=== PATIENT | female | born 1985 | race Caucasian/White ===

== ENCOUNTER 2018-10-26 11:18 | Emergency (ER) | payer OTHER ==
[2018-10-26] MEDS ORDERED: predniSONE 20 MG TAB PO ONE (11:43)
[2018-10-26] MEDS ORDERED: diphenhydrAMINE 25 MG CAP PO ONE (11:43)
[2018-10-26] MEDS ORDERED: FAMOTIDINE 20 MG TAB PO ONE (11:49)
--- NOTE | 2018-10-26 11:57 | EDPHY ---
H & P Time Seen by Provider: 10/26/18 11:30 HPI/ROS: This patient complains of urticaria with itching that started the night before presentation with history of sinusitis diagnosed after 6 weeks of nasal congestion and sinus pain 9 days ago by primary care physician, started on Augmentin and has taken 875 twice daily for 9 days. She came to the emergency department because he had a feeling of slight throat tightness prior to arrival associated with her hives that concerns her for potential impending breathing problem. She reports that her sinusitis is improved with now minimal pressure in the maxillary sinus region and no fevers. She is accompanied by her who drove her in by private vehicle. She has not taken any antihistamines or other additional medications since the onset of urticaria. She reports the urticaria is diffuse from her head to her toes. ROS: Constitutional: No fevers or chills recently HEENT: No sore throat or ear pain currently. Again sinus pressure is improved Pulmonary: No wheezing. No pleuritic pain. Cardiovascular: No heart palpitations or lightheadedness. GI: No nausea or vomiting Neuro: No complaints 7 point review of symptoms is performed and otherwise negative with exception of pertinent positives and negatives listed in HPI and ROS Past Medical/Surgical History: Sinusitis Smoking Status: Never smoked Physical Exam: General Appearance: Alert, no distress. Eyes: Pupils equal and round no pallor or injection. ENT, Mouth: Mucous membranes moist. Mallampati 1 airway with no drooling or stridor. No dysphonia. No angioedema Respiratory: There are no retractions, lungs are clear to auscultation. No wheezing. No rales. Cardiovascular: Regular rate and rhythm. No murmur gallop or rub Gastrointestinal: Abdomen is soft and nontender, no masses, bowel sounds normal. Neurological: GCS 15 Skin: Warm and dry, patient has diffuse erythematous papules that toño easily with pressure consistent with urticaria from her head to her toes. Musculoskeletal: Neck is supple nontender. Extremities are symmetrical, full range of motion. Psychiatric: Mood and affect are normal DIFFERENTIAL DIAGNOSIS: After history and physical exam differential diagnosis was considered for allergic drug rash, sinusitis resolving, nonspecific dermatitis, other urticaria from unrelated allergy, doubt anaphylaxis given lack of findings Constitutional: Initial Vital Signs Temperature (C) 36.2 C 10/26/18 11:25 Heart Rate 91 12/26/18 11:25 Respiratory Rate 18 10/26/18 11:25 Blood Pressure 126/82 H 10/26/18 11:25 O2 Sat (%) 96 10/26/18 11:25 O2 Delivery Mode Room Air Allergies/Adverse Reactions: many food and environmental allerg Allergy (Uncoded 10/26/18 11:25) Home Medications: Medication Instructions Recorded Multivitamins [Tab-A-Glendy] 1 tab PO HS 02/04/14 Albuterol 10/26/18 Augmentin 875 MG TAB (*) 10/26/18 Claritin 10/26/18 hydrOXYzine HCL [Hydroxyzine HCl] 50 - 100 mg PO QID PRN #80 tablet 10/26/18 predniSONE 40 mg PO DAILY #10 tab 10/26/18 MDM/Departure - MDM Medications Given: Discontinued Medications Diphenhydramine HCl (Benadryl) 50 mg PO EDNOW ONE Stop: 10/26/18 11:44 Last Admin: 10/26/18 11:58 Dose: 50 mg Famotidine (Pepcid) 40 mg PO EDNOW ONE Stop: 10/26/18 11:50 Last Admin: 10/26/18 11:58 Dose: 40 mg Prednisone (Prednisone) 60 mg PO EDNOW ONE Stop: 10/26/18 11:44 Last Admin: 10/26/18 11:58 Dose: 60 mg ED Course/Re-evaluation: Benadryl 50 mg p.o. Prednisone 60 mg p.o. Prednisone 40 mg p.o. Discussion: Patient with urticaria that is likely attributable to drug allergy to Augmentin. I counseled regarding this.. Augmentin, will continue on prednisone, Benadryl and Pepcid. She understands need to return should she develop any significant worsening despite treatment plan. Clinically currently , no findings that would suggest anaphylaxis. This seems to be dermatologic manifestations line at this point. While she has a feeling of tightness in her throat, no stridor, dysphonia or other red flag findings. - Depart Disposition: Home, Routine, Self-Care Clinical Impression: Allergic urticaria, Antibiotic-induced allergic rash Condition: Good Instructions: Urticaria (ED), Antibiotic Medication Allergy (ED) Additional Instructions: Diagnosis: Allergic urticaria due to antibiotic drug allergy Plan: List Augmentin/penicillin as an allergy from now: Stop the Augmentin Benadryl or hydroxyzine antihistamine for itching and rash as needed Pepcid 40 mg daily until symptoms resolve Prednisone 40 mg daily starting tomorrow in addition. (1st dose of 60 mg given in the emergency department) Return for any significant worsening despite the treatment plan Prescriptions: hydrOXYzine HCL [Hydroxyzine HCl] 50 - 100 mg PO QID PRN #80 tablet PRN Reason: Itching predniSONE 40 mg PO DAILY #10 tab Referrals: Desirae Locke PA [Primary Care Provider] - As per Instructions
[2018-10-26 13:32] VITALS: BP 114/81
== END 2018-10-26 12:15 | disposition home or self-care (01) ==
LOC: CED 11:18
DX: L50.0 Allergic urticaria (principal)
CPT/HCPCS: J7512